=== PATIENT | male | born 1940 | race Caucasian/White ===

== ENCOUNTER → 2019-08-15 | Outpatient (CLI) | payer OTHER | END | disposition home or self-care (01) | LOC: SJCVC 10:36 | DX: I25.10 Atherosclerotic heart disease of native coronary artery without angina pectoris (principal); R94.31 Abnormal electrocardiogram [ECG] [EKG]; I10 Essential (primary) hypertension; E78.00 Pure hypercholesterolemia, unspecified; Z95.1 Presence of aortocoronary bypass graft; Z79.82 Long term (current) use of aspirin; Z79.899 Other long term (current) drug therapy ==

== ENCOUNTER → 2019-10-31 | Outpatient (CLI) | payer OTHER ==
[~2019-10-31] MED LIST: ASA81BEC PO; COZAAR 25 MG TA25 M1 PO; CRESTOR20 MG PO; NITROSTAT0.4 M1; OMEGA 3 1,0001 EACH PO; OMEPRAZOLE40 MG PO
== END ==
LOC: SJCVC 12:59 → SJCVCIMAG 12:59
PROVIDERS: ATTEND Internal Medicine Cardiovascular Disease
DX: I44.0 Atrioventricular block, first degree (principal); I45.10 Unspecified right bundle-branch block; I25.810 Atherosclerosis of coronary artery bypass graft(s) without angina pectoris; I49.5 Sick sinus syndrome; I65.23 Occlusion and stenosis of bilateral carotid arteries; I10 Essential (primary) hypertension; E78.2 Mixed hyperlipidemia; Z95.1 Presence of aortocoronary bypass graft

== ENCOUNTER → 2019-11-04 | Outpatient (CLI) | payer OTHER ==
[~2019-11-04] VITALS: Ht 172.7 cm; Wt 108.9 kg
[2019-11-04 07:11] VITALS: BP 129/72
[2019-11-04 07:16] LABS: HEMATOCRIT 46.6 % (42.0-52.0); HEMOGLOBIN 15.7 gm/dL (14.0-18.0); MCH 30.6 pg (26.0-34.0); MCHC 33.7 g/dL (28.0-37.0); MCV 90.7 fL (80.0-100.0); RBC 5.14 mil/uL (4.50-6.00); RDW 13.1 % (10.5-14.5); WBC 6.7 thou/uL (4.0-11.0)
[2019-11-04 07:36] LABS: CALCIUM 9.4 mg/dL (8.5-10.1); CREATININE 1.4 mg/dL (0.7-1.3); POTASSIUM 3.8 mmol/L (3.5-5.1)
--- NOTE | 2019-11-04 09:41 | EKG ---
[facility] [address] ELECTROCARDIOGRAM REPORT Name: BENNETT SNYDER Room #: REG CL M.Gautam.#: [id number] Admission: 11/04/19 Attend Phys: Munir Cardoza MD, Discharge: Date of : 42 Report #: [id number] THIS REPORT FOR: cc: Miles Klein MD, Alexander C. MD Lundgren, Craig H. MD [facility] ~ THIS REPORT FOR: //name// [facility] Test Date: 2019-11-04 Test Time: 07:25:50 Pat Name: BENNETT SNYDER Department: Room: Gender: Welfare Director: [facility] : 1940 Requested By: Munir Cardoza Order Number: [id number] MD: Avtar Barfield Measurements Intervals [place] Rate: 53 P: -6 NV: 176 QRS: -37 QRSD: 134 T: 57 QT: 445 QTc: 418 Interpretive Statements Sinus rhythm Right bundle branch block Left ventricular hypertrophy Compared to ECG 06/27/2007 16:58:05 Right bundle branch block is now present LVH is now present Electronically Signed On 11-04-2019 9:40:18 CDT by Avtar Barfield [email or web address] <ELECTRONICALLY SIGNED> By: Avtar Barfield MD, [facility] 11/04/19 0940 4 4 Avtar Barfield MD, [facility] /EPI
--- NOTE | 2019-11-04 15:04 | CATHLAB ---
[facility] [place] [address] INVASIVE PROCEDURE REPORT Name: BENNETT SNYDER Room #: REG DAVIS SyedRhea#: [id number] Admission: 11/04/19 Attend Phys: Munir Cardoza MD, Discharge: Date of : 42 Report #: [id number] THIS REPORT FOR: cc: Miles Klein MD, Alexander C. MD Mancuso, Gerald M. MD [facility] ~ APPROVED REPORT Study performed: 11/04/2019 08:24:23 Patient Details Patient Status: Out-Patient Room #: The patient is a 79 year-old male Event Personnel Munir Cardoza Bus Driver, Hanane Harding RN RN, Barbra Iverson RTR, PRINTER FLOOR COVERING ASSISTANT Monitor, Freida Wheeler Procedures Performed Art Access - R femoral artery* Left Heart Cath Coronaries, Bypass Grafts [id number] LHCCORCABG 81605 Initial Mod Sed Same Phys/QHP Gr5y 715533 Renal Bilateral Peripheral Angiography 2869532 CVRENALBIL Hemostasis w/ Mynx 56481 Mod Sed Same Phys/QHP Ea 253732 Indication Chest pain Procedure Narrative The Right Groin^ was infiltrated with 1% Lidocaine subcutaneous anesthesia. A PINNACLE 6FR Sheath #[id number] sheath was inserted into the RFA^. Coronary angiography was performed using coronary diagnostic catheters. The right coronary system was accessed and visualized with a JR4 catheter. The left coronary system was accessed and visualized with a JL4 catheter. The left ventricle was accessed and visualized with a pigtail catheter. Left ventricular/Aortic Valve gradient assessed via catheter pullback. Left ventriculogram was performed in 30 degree projection. Pre-demployment femoral angiogram was performed . Closure device was deployed with a 6 Fr MynxGrip 6/7F. The patient tolerated the procedure well and there were no complications associated with the procedure. There was no hematoma. Intraoperative Conscious Sedation [facility] [address] [place] [address] INVASIVE PROCEDURE REPORT Name: BENNETT SNYDER Room #: REG Rachel#: [id number] Admission: 11/04/19 Attend Phys: Munir LeeRhea GomezNani, Discharge: Date of : 42 Report #: [id number] Sedation start time: 08:47 Case end Time: 09:23 Fentanyl 100 mcg Versed 2 mg Fluoro Time: 4.19 minutes Dose: DAP 6758.00 cGycm2 819 mGy Contrast Type and Amount: Visipaque 85 ml Hemodynamics The aortic pressure is 117/64 mmHg with a mean of 84 mmHg. The left ventricular pressure is 130/6 mmHg with a mean of mmHg. The left ventricular end diastolic pressure is 27 mmHg. Conclusion #1. Normal left ventricular size and systolic function EF 55 to 60% #2 ostial left main of 60 to 70% giving rise to LAD and circumflex. Moderate size lumen still exist with the stenosis. #3 the LAD is an eccentric proximal lesion of 50 to 60% otherwise well-preserved vessel around the apex. It is actually competitively filled from the radial graft to OM system. #4 the BAEZ graft is atraumatic and no significant flow is noted. Antegrade flow through the [place] system is well preserved as described above. The left main ostial lesion does not appear to be significantly flow-limiting. #5 the dominant right coronary was mild irregularity PDA is well preserved. #6 a radial graft to a OM system is briskly filling the entire OM system and also the LAD. In a competitive fashion. This graft is widely patent and well preserved #7 a single left renal artery is widely patent. #8 a dual supply to the right kidney has only mild ostial disease. Recommendations and plan: Continue aggressive risk factor modification. There is no clear indication for coronary intervention. Although BAEZ graft is occluded and presumably atretic there is brisk flow through the [place] system and LAD is also filled via the radial graft to the OM in a retrograde fashion. Will correlate this with nuclear stress testing in the next 3 to 6 months. <ELECTRONICALLY SIGNED> By: Munir Cardoza MD, FACC 11/04/19 1503 1503 1503 Munir Cardoza MD, FACC /INF
== END | disposition home or self-care (01) ==
LOC: CATH 06:43
PROVIDERS: Internal Medicine Cardiovascular Disease
DX: R07.9 Chest pain, unspecified (principal); I25.10 Atherosclerotic heart disease of native coronary artery without angina pectoris; I70.1 Atherosclerosis of renal artery; I10 Essential (primary) hypertension; E78.5 Hyperlipidemia, unspecified; I25.2 Old myocardial infarction; K21.9 Gastro-esophageal reflux disease without esophagitis; I49.5 Sick sinus syndrome; E66.09 Other obesity due to excess calories; Z98.890 Other specified postprocedural states; Z79.899 Other long term (current) drug therapy; Z96.643 Presence of artificial hip joint, bilateral; Z88.8 Allergy status to other drugs, medicaments and biological substances; Z79.82 Long term (current) use of aspirin

== ENCOUNTER → 2020-01-20 | Outpatient (CLI) | payer OTHER | LOC: CAT 09:42 | PROVIDERS: ATTEND Neuromusculoskeletal Medicine & OMM | DX: R90.82 White matter disease, unspecified (principal); G31.89 Other specified degenerative diseases of nervous system ==

== ENCOUNTER → 2020-06-11 | Outpatient (CLI) | payer OTHER | LOC: SJCVCIMAG 05-20 08:18 | PROVIDERS: ATTEND Internal Medicine Cardiovascular Disease | DX: I25.10 Atherosclerotic heart disease of native coronary artery without angina pectoris (principal); I49.3 Ventricular premature depolarization; I65.23 Occlusion and stenosis of bilateral carotid arteries; E78.00 Pure hypercholesterolemia, unspecified; I10 Essential (primary) hypertension; Z79.899 Other long term (current) drug therapy ==

== ENCOUNTER → 2021-03-18 | Outpatient (CLI) | payer OTHER | LOC: SJCVC 11:12 | PROVIDERS: ATTEND Internal Medicine Cardiovascular Disease | DX: I45.10 Unspecified right bundle-branch block (principal); R00.1 Bradycardia, unspecified; I25.810 Atherosclerosis of coronary artery bypass graft(s) without angina pectoris; I11.9 Hypertensive heart disease without heart failure; E78.00 Pure hypercholesterolemia, unspecified; I65.23 Occlusion and stenosis of bilateral carotid arteries; J45.909 Unspecified asthma, uncomplicated; G89.29 Other chronic pain; E78.5 Hyperlipidemia, unspecified; G30.1 Alzheimer's disease with late onset; F02.80 Dementia in other diseases classified elsewhere, unspecified severity, without behavioral disturbance, psychotic disturbance, mood disturbance, and anxiety; Z90.49 Acquired absence of other specified parts of digestive tract; Z95.1 Presence of aortocoronary bypass graft; Z98.890 Other specified postprocedural states; Z88.8 Allergy status to other drugs, medicaments and biological substances; Z79.82 Long term (current) use of aspirin; Z79.899 Other long term (current) drug therapy ==

== ENCOUNTER → 2021-04-01 | Outpatient (CLI) | payer OTHER | LOC: MRI 09:04 | PROVIDERS: ATTEND Internal Medicine Cardiovascular Disease | DX: G31.89 Other specified degenerative diseases of nervous system (principal); R90.82 White matter disease, unspecified; R41.3 Other amnesia ==